=== PATIENT | female | born 1975 | race Caucasian/White ===

== ENCOUNTER 2022-05-23 09:40 | Outpatient (CLI) | payer BC | END 2022-05-23 09:41 | disposition home or self-care (01) | LOC: CSHMAMMO 09:40 | PROVIDERS: ATTEND Internal Medicine | DX: Z13.820 Encounter for screening for osteoporosis (principal); E21.3 Hyperparathyroidism, unspecified; M85.89 Other specified disorders of bone density and structure, multiple sites | CPT/HCPCS: 77080 ==